=== PATIENT | female | born 1975 | race Caucasian/White ===

== ENCOUNTER 2022-03-05 10:05 | Emergency (ER) | payer OTHER, SELFPAY ==
[2022-03-05 10:16] VITALS: BP 143/90; PULSE 64; RESP 16; TEMP 36.8; O2SAT 100
--- NOTE | 2022-03-05 10:21 | ED.URI ---
HPI - URI/Sore Throat General Chief Complaint: Upper Respiratory Infection Stated Complaint: ELEVATED BLOOD PRESSURE/PASSED OUT/CHILLS/SWEATS/ Time Seen by Provider: 03/05/22 10:21 Source: patient and RN notes reviewed Mode of arrival: ambulatory Limitations: no limitations History of Present Illness HPI Narrative: 46-year-old female presented for complaint of fatigue today. She endorses yesterday she had a brief syncopal episode. She states she was sitting on a stool when she ?passed out? and as she was falling she ?came to. ? She was able to stop herself from hitting her head. She states at that time she had elevated blood pressure 150/103. Later that day she noticed rainbows around objects. Endorses compliance with blood pressure medications. She states she went to work today but continues to feel severe fatigue and is unable to perform her job functions. 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 She denies associated chest pain, palpitations, shortness breath, nausea vomiting, diarrhea, fevers or chills. Denies changes to medication. Endorses daughter was sick. Today patient feels much better just fatigue. MD elicited complaint: cough Related Data Home Medications Medication Instructions Recorded Confirmed losartan 100 mg tablet 100 mg PO DAILY 03/05/22 03/05/22 metoprolol tartrate 50 mg tablet 50 mg PO DAILY 03/05/22 03/05/22 sertraline 100 mg tablet 100 mg PO DAILY 03/05/22 03/05/22 trazodone 50 mg tablet 50 mg PO DIRECTED 03/05/22 03/05/22 Allergies Allergy/AdvReac Type Severity Reaction Status Date / Time erythromycin base Allergy Unknown Gastrointestinal Verified 03/05/22 10:16 Upset Penicillins Allergy Unknown Rash Verified 03/05/22 10:16 Review of Systems Review of Systems: ROS per HPI [facility] Family History Family History Mother Hypertension Father Family history of arthritis Other Family history of alcoholism Exam Narrative: GENERAL: well-appearing HEAD: Normocephalic EYES: PERRLA, EOMI conjunctivae clear ENT: Mucous membranes moist. TMs pearly hensley with dull light reflex bilaterally; no tragal tenderness. Oropharynx normal without lesions or exudate NECK: Normal ROM CHEST: Clear to auscultation, breath sounds equal. No wheezing, rhonchi, rales, or stridor. No respiratory distress, speaks in full sentences. HEART: Regular rate and rhythm. No murmur heard. SKIN: Warm, dry, no rash. NEURO: Alert and oriented x3. No focal deficits. PSYCH: Normal mood and affect Course Course Emergency Course: Patient is aware of diagnosis, understands and agrees to treatment plan. Anticipatory guidance given. Patient agrees to follow-up as directed and is aware of reasons to seek care at the emergency department. Portions of this record may have been created with voice recognition software Level of Care: Express Care Visit Vital Signs Vital signs: Vital Signs Temperature 98.3 F 03/05/22 10:16 Pulse Rate 64 03/05/22 10:16 Respiratory Rate 16 03/05/22 10:16 Blood Pressure 143/90 H 03/05/22 10:16 Pulse Oximetry 100 03/05/22 10:16 Oxygen Delivery Room Air 03/05/22 10:16 Temperature 98.3 F 03/05/22 10:16 Pulse Rate 64 03/05/22 10:16 Respiratory Rate 16 03/05/22 10:16 Blood Pressure 143/90 H 03/05/22 10:16 Pulse Oximetry 100 03/05/22 10:16 Oxygen Delivery Room Air 03/05/22 10:16 reviewed MDM - URI/Sore Throat MDM Narrative Medical decision making narrative: flu negative. Patient declined EKG. Patient is well appearing. Advised supportive measures and signs/symptoms to go to the ER. Pt is appropriate for outpt treatment and f/u. Differential Diagnosis Differential diagnosis: Likely upper respiratory infection, sinusitis and viral infection Lab Data Labs: Influenza A Screen Negative
== END 2022-03-05 11:20 | disposition home or self-care (01) ==
PROVIDERS: Emergency Provider Nurse Practitioner Family
DX: R53.83 Other fatigue (principal)
CPT/HCPCS: 87804; 99203; G0463

== ENCOUNTER → 2022-06-28 09:56 | Outpatient (CLI) | payer OTHER, SELFPAY ==
--- NOTE | ~2022-06-28 | MR_ITS ---
EXAMINATION: MR ankle RT wo con DATE: 06/28/2022 10:53 INDICATION: Right Achilles tendinitis. Right ankle pain and swelling. TECHNIQUE: Magnetic resonance imaging (MRI) of the right ankle was performed without intravenous cont rast. Sequences included sagittal PD-weighted FS FSE, sagittal PD-weighted FSE, coronal PD-weighted F S FSE, coronal PD-weighted FSE, axial PD-weighted FS FSE, and axial PD-weighted FSE. COMPARISON: None. FINDINGS: Medial ankle ligaments: The superficial and deep components of the deltoid ligament are intact. Lateral ankle ligaments: Anterior and posterior talofibular ligaments, calcaneofibular ligament, and posterior tibiofibular li gament are normal. There are changes of prior sprain of anterior tibiofibular ligament characterized by thickening and increased signal intensity. Tendons: The anterior and medial ankle tendons are normal. The peroneal tendons are normal. Achilles tendon is thickened with increased signal intensity and a few discontiguous fibers involving its distal attach ment. There is an enthesophyte at the distal attachment. There is moderate pre-Achilles bursitis and Achilles paratenonitis. Plantar fascia: There is thickening and increased signal involving the central band of the plantar fascia, consistent with fasciitis. There is an enthesophyte at the calcaneal attachment. Bones/other: The talar dome is normal. There is edema-like marrow signal intensity in fifth metatarsal proximally, likely stress reaction. Fluid: There is a small ankle joint effusion. IMPRESSION: 1. Distal Achilles tendinopathy and partial tear with pre-Achilles bursitis and paratenonitis. 2. Plantar fasciitis. Reviewed, dictated and finalized at location A.
== END ==
PROVIDERS: PCP Podiatrist Foot & Ankle Surgery; Visit Provider Podiatrist Foot & Ankle Surgery
DX: M76.61 Achilles tendinitis, right leg (principal); M24.871 Other specific joint derangements of right ankle, not elsewhere classified; M72.2 Plantar fascial fibromatosis
CPT/HCPCS: 73721

== ENCOUNTER 2022-11-06 11:56 | Outpatient (CLI) | payer OTHER, SELFPAY ==
--- NOTE | 2022-11-06 | ECG_ITS ---
Measurements Intervals [place] Rate: 80 P: 54 ND: 181 QRS: -14 QRSD: 101 T: 22 QT: 380 QTc: 439 Interpretive Statements SINUS RHYTHM INCOMPLETE RIGHT BUNDLE BRANCH BLOCK [90+ ms QRS DURATION, TERMINAL R IN V1/V2, 40+ ms S IN I/aVL/V4/V5/V6] MODERATE VOLTAGE CRITERIA FOR LVH, CONSIDER NORMAL VARIANT [MEETS CRITERIA IN ONE OF: R(aVL), S(V1), R(V5), R(V5/V6)+S(V1)] NONSPECIFIC T-WAVE ABNORMALITY ABNORMAL ECG NO PREVIOUS ECG AVAILABLE FOR COMPARISON Electronically Signed On 11-06-2022 13:08:57 CDT by Cristiano Amado M.D.
[2022-11-06 13:34] LABS: Anion Gap 6 mmol/L (8-16); Blood Urea Nitrogen 18 mg/dL (7-17); Calcium 8.8 mg/dL (8.4-10.2); Carbon Dioxide 28 mmol/L (22-30); Chloride 102 mmol/L (98-107); Estimated Glomerular Filt Rate > 60; Glucose 123 mg/dL (65-110); Potassium 3.8 mmol/L (3.4-5.0); Sodium 136 mmol/L (137-145)
== END 2022-11-06 11:57 | disposition home or self-care (01) ==
PROVIDERS: PCP Podiatrist Foot & Ankle Surgery; Visit Provider Podiatrist Foot & Ankle Surgery
DX: I10 Essential (primary) hypertension (principal)
CPT/HCPCS: 36415; 80048; 93005

== ENCOUNTER 2024-01-22 18:57 | Emergency (ER) | payer BC, SELFPAY ==
[2024-01-22] VITALS (37 sets, daily range): BP systolic 58–151; BP diastolic 49–90; PULSE 76–113; RESP 12–25; TEMP 36.4; O2SAT 90–100
--- NOTE | ~2024-01-22 | XR_ITS ---
XR chest 1V portable Ordering provider: Prakash Rachel MD History: 48 years Female with . shortness of breath . Comparison: October 09, 2015 FINDINGS: MEDIASTINUM: The cardiac silhouette is not enlarged. LUNGS: No infiltrates, effusions or pneumothorax. Prominent bronchovascular markings seen in the lower lobes. bronchopneumonia is not excluded. Follow- up advised. OTHER: No free air under the diaphragm. IMPRESSION: Prominent bronchovascular markings in the lower lobes. Bronchopneumonia is not excluded. Follow-up ad vised. Reviewed, dictated and finalized at location A. IMPRESSION: Prominent bronchovascular markings in the lower lobes. Bronchopneumonia is not excluded. Follow-up advised.
[2024-01-22] MEDS: ONDANSETRON INJ 4 MG/2 ML VIAL IV PUSH (19:16)
--- NOTE | 2024-01-22 19:17 | ED_ITS ---
HPI - General Adult General Chief complaint: Overdose Stated complaint: ALLERGIC REACTION S/P MARIJUANA OD Time Seen by Provider: 01/22/24 19:10 History of Present Illness HPI narrative: The patient is a 48-year-old female who presents emergency department with chief complaint of he not feeling well after taking a THC gummy. Patient reports around 430 this afternoon she took half of a 1500 mg THC gummy. Patient reports that she has been feeling very nauseated reports that she feels weak reports that she has had some visual hallucinations as well. Patient denies suicidal homicidal ideation. The patient reports that she is not taken this high dose of THC before and never had this type of reaction reported THC. Related Data Home Medications Medication Instructions Recorded Confirmed losartan 100 mg tablet 100 mg PO DAILY 03/05/22 03/05/22 metoprolol tartrate 50 mg tablet 50 mg PO DAILY 03/05/22 03/05/22 sertraline 100 mg tablet 100 mg PO DAILY 03/05/22 03/05/22 trazodone 50 mg tablet 50 mg PO DIRECTED 03/05/22 03/05/22 Allergies Allergy/AdvReac Type Severity Reaction Status Date / Time erythromycin base Allergy Unknown Gastrointestinal Verified 03/05/22 10:16 Upset Penicillins Allergy Unknown Rash Verified 03/05/22 10:16 Review of Systems Review of Systems: A 10 system review of systems was completed on the patient and is negative except for what is stated in the HPI. Nursing and ancillary documentation was reviewed. [facility] Family History Family History Mother Hypertension Father Family history of arthritis Other Family history of alcoholism Social History Social History Substance use type: marijuana Exam Narrative: GENERAL: Well-appearing, well-nourished, and in no acute distress. HEAD: Normocephalic, atraumatic. EYES: PERRLA and EOMI. ENT: Nares clear, no rhinorrhea or epistaxis. Mucous membranes moist. NECK: Supple. CHEST: Clear to auscultation. No respiratory distress. HEART: Regular rate and rhythm. No murmur heard. Normal peripheral pulses. ABDOMEN: Soft, nontender, nondistended, normal active bowel sounds. EXTREMITIES: Normal range of motion. No edema. SKIN: Warm, dry, no rash. NEURO: No focal deficits. Alert and oriented x3. PSYCH: Normal mood and affect. Course Vital Signs Vital signs: Vital Signs Pulse Rate 113 H 01/22/24 19:02 Respiratory Rate 18 01/22/24 19:02 Blood Pressure 145/86 H 01/22/24 19:02 Pulse Oximetry 100 01/22/24 19:02 Oxygen Delivery Room Air 01/22/24 19:02 Pulse Rate 100 01/22/24 19:52 Respiratory Rate 18 01/22/24 19:02 Blood Pressure 145/86 H 01/22/24 19:02 Pulse Oximetry 100 01/22/24 19:02 Oxygen Delivery Room Air 01/22/24 19:14 Medical Decision Making MDM Narrative Medical decision making narrative: Differential diagnosis includes medication side effect accidental ingestion The patient was observed in the emergency department and is feeling much better at this time the patient will be discharged home to follow-up with her primary care provider Vital Signs Vital Signs: Vital Signs Pulse Rate 113 H 01/22/24 19:02 Respiratory Rate 18 01/22/24 19:02 Blood Pressure 145/86 H 01/22/24 19:02 Pulse Oximetry 100 01/22/24 19:02 Oxygen Delivery Room Air 01/22/24 19:02 Pulse Rate 100 01/22/24 19:52 Respiratory Rate 18 01/22/24 19:02 Blood Pressure 145/86 H 01/22/24 19:02 Pulse Oximetry 100 01/22/24 19:02 Oxygen Delivery Room Air 01/22/24 19:14 Lab Data 01/22/24 20:41 01/22/24 19:48 Labs: Lab Results 01/22/24 01/22/24 01/22/24 Range/Units 19:48 19:49 20:41 WBC 10.2 H (4.5-10.0) K/mm3 RBC 4.96 (4.2-5.4) M/mm3 Hgb 14.4 (12.0-15.0) g/dL Hct 44.3 (37.0-47.0) % MCV 89.3 (80-100) fl MCH 29.0 (26-34) pg MCHC 32.5 (32-36) g/dl RDW 13.4 (11.5-14.5) % Plt Count 209 (150-375) k/mm3 MPV 8.7 (7.4-10.4) fl Immature Gran % (Auto) 0.3 (0-0.5) % Neut % (Auto) 77.0 H (45.5-73.1) % Lymph % (Auto) 15.1 L (18.3-44.2) % [place] % (Auto) 5.8 (2.6-8.5) % Eos % (Auto) 1.3 (0-4.4) % Baso % (Auto) 0.5 (0.2-1.2) % Lymph # (Auto) 1.55 (0.9-3.2) K/mm3 [place] # (Auto) 0.6 (0.1-0.6) K/mm3 Eos # (Auto) 0.1 (0-0.3) K/mm3 Baso # (Auto) 0.1 (0.0-0.1) K/mm3 Abs Immat Gran (auto) 0.03 (0.00-0.031) K/mm3 Absolute Neuts (auto) 7.9 H (1.3-6.7) K/mm3 Absolute Nucleated RBC 0.000 (0.0-0.012) K/mm3 Nucleated RBC % 0.0 (0.0-0.2) % Sodium 138 (137-145) mmol/L Potassium 3.5 (3.4-5.0) mmol/L Chloride 102 (98-107) mmol/L Carbon Dioxide 24 (22-30) mmol/L Anion Gap 12 (4-12) mmol/L BUN 20 H (7-17) mg/dL Creatinine 1.10 H (0.7-1.0) mg/dL Estim Creat Clear Calc 74 ml/min Estimated GFR 53 L (59 - ) Glucose 202 H (65-110) mg/dL Calcium 8.9 (8.4-10.2) mg/dL Total Bilirubin 0.6 (0.2-1.3) mg/dL AST 26 (14-36) U/L ALT 25 (6-35) U/L Alkaline Phosphatase 67 (38-126) U/L Total Protein 8.0 (6.3-8.2) g/dL Albumin 4.3 (3.5-5.1) g/dL Urine Color Yellow (Yellow) Urine Appearance Clear (Clear) Urine pH 5.5 (5.0-9.0) Ur Specific [place] 1.039 H (1.001-1.035) Urine Protein Negative (Negative) mg/dL Urine Glucose (UA) 3+ H (Negative) mg/dL Urine Ketones Negative (Negative) mg/dL Ur Blood (Man) Negative (Negative) Urine Nitrate Negative (Negative) Urine Bilirubin Negative (Negative) Urine Urobilinogen 0.2 (<2.0) mg/dL Leukocyte Esterase Rfl Negative (Negative) CAROLE/UL Salicylates < 1.0 L (2-20) mg/dL Urine Opiates Screen Negative (Negative) Urine Methadone Screen Negative (Negative) Acetaminophen < 10 L (10-30) ug/mL Ur Barbiturates Screen Negative (Negative) Ur Phencyclidine Scrn Negative (Negative) Ur Amphetamine Screen Negative (Negative) U Benzodiazepines Scrn Negative (Negative) Urine Cocaine Screen Negative (Negative) U Cannabinoids Screen Positive A (Negative) Ethyl Alcohol < 10 (<10) mg/dL Discharge Plan Discharge Clinical Impression: Accidental drug ingestion Patient Disposition: Home, Self-Care Condition: Stable Instructions: Antibiotic Form, Adult Overdose (ED) Additional Instructions: Please avoid using high strength THC gummies Prescriptions: No Action trazodone 50 mg tablet 50 mg PO DIRECTED sertraline 100 mg tablet 100 mg PO DAILY metoprolol tartrate 50 mg tablet 50 mg PO DAILY losartan 100 mg tablet 100 mg PO DAILY Follow-up/Referrals: Deidra Parker DPM [Primary Care Provider] - Time of Disposition: 23:04
[2024-01-22 20:05] LABS: Add Urine Microscopic? NO; Appearance Urine Clear (Clear); Bilirubin Urine Negative (Negative); Blood Urine Negative (Negative); Color Urine Yellow (Yellow); Glucose Urine UA 3+ mg/dL (Negative); Ketones Urine Negative (Negative); Leukocyte Esterase Ur Negative LEU/UL (Negative); Nitrate Urine Negative (Negative); Protein Urine Negative (Negative); Specific Grav Ur 1.039 (1.001-1.035); Urobilinogen Urine 0.2 mg/dL (<2.0); pH Urine 5.5 (5.0-9.0)
[2024-01-22 20:09] LABS: Alanine Aminotransferase 25 U/L (6-35); Albumin Level 4.3 g/dL (3.5-5.1); Alkaline Phosphatase 67 U/L (38-126); Anion Gap 12 mmol/L (4-12); Aspartate Amino Transferase 26 U/L (14-36); Bilirubin,Total 0.6 mg/dL (0.2-1.3); Blood Urea Nitrogen 20 mg/dL (7-17); Calcium 8.9 mg/dL (8.4-10.2); Carbon Dioxide 24 mmol/L (22-30); Chloride 102 mmol/L (98-107); Estimated CRCL calculation 74 ml/min; Estimated Glomerular Filt Rate 53; Glucose 202 mg/dL (65-110); Potassium 3.5 mmol/L (3.4-5.0); Sodium 138 mmol/L (137-145)
[2024-01-22] MEDS: SODIUM CHLORIDE 0.9% IV 1,000 ML 999 ML IV CONT (20:16)
[2024-01-22 20:17] LABS: Acetaminophen < 10 ug/mL (10-30); Ethanol < 10 mg/dL (<10); Salicylate < 1.0 mg/dL (2-20)
[2024-01-22 20:34] LABS: Amphetamine Screen Urine Negative (Negative); Barbiturate Screen Urine Negative (Negative); Benzodiazepines Screen Urine Negative (Negative); Cannabinoid Screen Urine Positive (Negative); Cocaine Screen Urine Negative (Negative); Methadone Screen Urine Negative (Negative); Opiate Screen Urine Negative (Negative); Phencyclidine Screen Urine Negative (Negative)
[2024-01-22 20:51] LABS: Basophils Absolute Auto 0.1 K/mm3 (0.0-0.1); Basophils Percent Auto 0.5 % (0.2-1.2); Eosinophils Absolute Auto 0.1 K/mm3 (0-0.3); Eosinophils Percent Auto 1.3 % (0-4.4); Hematocrit 44.3 % (37.0-47.0); Hemoglobin 14.4 g/dL (12.0-15.0); Immature Granulocyte Absolute 0.03 K/mm3 (0.00-0.031); Immature Granulocyte Percent A 0.3 % (0-0.5); Lymphocytes Absolute Auto 1.55 K/mm3 (0.9-3.2); Lymphocytes Percent Auto 15.1 % (18.3-44.2); Mean Corpuscular HGB Conc 32.5 g/dl (32-36); Mean Corpuscular Volume 89.3 fl (80-100); Mean Platelet Volume 8.7 fl (7.4-10.4); Monocytes Absolute Auto 0.6 K/mm3 (0.1-0.6); Monocytes Percent Auto 5.8 % (2.6-8.5); Neutrophils Absolute Auto 7.9 K/mm3 (1.3-6.7); Platelet Count Result 209 k/mm3 (150-375); Red Blood Count 4.96 M/mm3 (4.2-5.4); Red Cell Distribution Width 13.4 % (11.5-14.5); White Blood Count 10.2 K/mm3 (4.5-10.0)
== END 2024-01-22 23:32 | disposition home or self-care (01) ==
PROVIDERS: Emergency Provider Emergency Medicine; PCP Podiatrist Foot & Ankle Surgery
DX: T40.711A Poisoning by cannabis, accidental (unintentional), initial encounter (principal); R11.0 Nausea; R53.1 Weakness; R44.1 Visual hallucinations
CPT/HCPCS: 36415; 71045; 80053; 80143; 80179; 80307; 81003; 82077; 85025; 96361; 96374; 99284; J2405; J7030